=== PATIENT | male | born 1970 | race Caucasian/White ===

== ENCOUNTER 2019-08-11 04:10 | Emergency (ER) | payer MEDICAID ==
[~2019-08-11] VITALS: Ht 177.8 cm; Wt 97.4 kg
[~2019-08-11 04:10] MED LIST: TEST5GEL29 HOMETD
[2019-08-11 04:26] VITALS: BP 150/97
--- NOTE | 2019-08-11 04:38 | NUR ---
THIS IS A 49Y M THAT COMES IN TONIGHT AFTER A GLF ONTO SOME ROCKS. PT STS HE IS NOT FEELING SOB AND HAS BEEN DRINKING ETOH AND MONSTER COFFEE THIS EVENING. PT CONNECTED TO ALL MONITORING VSS, CHIDI
--- NOTE | 2019-08-11 04:49 | NUR ---
PA AT BEDSIDE TO ASSESS PT AT THIS TIME.
--- NOTE | 2019-08-11 06:13 | NUR ---
Patient/Caregiver given discharge instructions and they have confirmed that they understand the instructions. Patient ambulatory with steady gait. pt provided with IS and educated on use prior to departing er.
== END 2019-08-11 06:14 | disposition home or self-care (01) ==
LOC: ED 04:32
DX: S23.3XXA Sprain of ligaments of thoracic spine, initial encounter (principal); S29.012A Strain of muscle and tendon of back wall of thorax, initial encounter; R07.89 Other chest pain; R05 Cough; R94.31 Abnormal electrocardiogram [ECG] [EKG]; M45.9 Ankylosing spondylitis of unspecified sites in spine; X58.XXXA Exposure to other specified factors, initial encounter; Y93.89 Activity, other specified; Y92.89 Other specified places as the place of occurrence of the external cause; Y99.8 Other external cause status
CPT/HCPCS: 71045; 72072; 93005; 99284

== ENCOUNTER 2019-10-11 06:37 | Emergency (ER) | payer MEDICAID ==
[~2019-10-11] VITALS: Ht 177.8 cm; Wt 98.2 kg
[2019-10-11 06:39] VITALS: BP 140/84
--- NOTE | 2019-10-11 06:54 | NUR ---
PT HAS CO OF LOWER BACK PAIN, SPASMS W FLEXION. JOINT TENDERNESS. DENIES N/T IN EXTREMITES. CMS INTACT. MD AT BEDSIDE FOR EXAM. DENIES CP OR SOB.
[2019-10-11] MEDS ORDERED: DIAZEPAM 5 MG TABLET ONE (06:59)
[2019-10-11] MEDS ORDERED: KETOROLAC 30 MG/1 ML ONE (06:59)
[2019-10-11] MEDS ORDERED: HYDROcodone/APAP 5/325 TABLET ONE (06:59)
[2019-10-11] MEDS ORDERED: KETOROLAC 30 MG/1 ML IM ONE (07:00)
[2019-10-11] MEDS ORDERED: DIAZEPAM 5 MG TABLET PO ONE (07:00)
[2019-10-11] MEDS ORDERED: HYDROcodone/APAP 5/325 TABLET PO ONE (07:00)
--- NOTE | 2019-10-11 07:04 | NUR ---
MEDICATED PER ORDERS. PT DENIES INJURY OR TRAUMA
--- NOTE | 2019-10-11 07:56 | NUR ---
Patient/Caregiver given discharge instructions and they have confirmed that they understand the instructions. Patient ambulatory with steady gait.
== END 2019-10-11 07:57 | disposition home or self-care (01) ==
LOC: ED 07:14
DX: S39.012A Strain of muscle, fascia and tendon of lower back, initial encounter (principal); W19.XXXA Unspecified fall, initial encounter; Y93.01 Activity, walking, marching and hiking; Y92.89 Other specified places as the place of occurrence of the external cause; Y99.8 Other external cause status
CPT/HCPCS: 96372; 99283; J1885

== ENCOUNTER 2019-11-08 07:28 | Emergency (ER) | payer MEDICAID ==
[~2019-11-08] VITALS: Ht 177.8 cm; Wt 97.2 kg
[2019-11-08] MEDS ORDERED: FAMOTIDINE 20 MG/2 ML IV ONE (08:00)
[2019-11-08] MEDS ORDERED: THIAMINE 100MG TABLET PO ONE (08:00)
[2019-11-08] MEDS ORDERED: ONDANSETRON 2MG/ML, 2ML IVPush ONE (08:00)
[2019-11-08] MEDS ORDERED: SODIUM CHLORIDE FLUSH 10ML SYR IVF ONE (08:00)
[2019-11-08] MEDS ORDERED: SODIUM CHLORIDE 0.9% 1,000ML IVBOLUS ONE (08:00)
--- NOTE | 2019-11-08 08:17 | NUR ---
PT AMBULATORY TO ROOM 22 W/ C/O SOB, DRY COUGH, CONGESTION, RUNNY NOSE, DIZZINESS. STATES "I'M PRETTY SURE I HAVE COVID. [facility]". PT ALSO HAS C/O BACK PAIN AND NUMBNESS TO BILAT FINGERS AND PENIS. PT PLACED ON MONITORS. EKG COMPLETED IN TRIAGE. 2ND EKG IN ROOM. PIV INITIATED.
[2019-11-08] MEDS ORDERED: FAMOTIDINE 20 MG/2 ML ONE (08:26)
[2019-11-08] MEDS ORDERED: ONDANSETRON 2MG/ML, 2ML ONE (08:26)
[2019-11-08] MEDS ORDERED: THIAMINE 100MG TABLET ONE (08:26)
[2019-11-08 08:39] LABS: BASOPHILS # (AUTO) 0.03 x10^3/uL (0-0.1); BASOPHILS % (AUTO) 0 % (0-1); EOSINOPHILS # (AUTO) 0.14 x10^3/uL (0-0.4); EOSINOPHILS % (AUTO) 2 % (1-7); LYMPHOCYTES # (AUTO) 0.67 x10^3/uL (1-3.4); LYMPHOCYTES % (AUTO) 9 % (22-44); MD NO; MEAN CORPUSCULAR HEMOGLOBIN 32.7 pg (27.5-34.5); MEAN CORPUSCULAR HGB CONC 33.6 g/dL (33.2-36.2); MEAN PLATELET VOLUME 7.1 fL (7.4-10.4); MONOCYTES # (AUTO) 0.43 x10^3/uL (0.2-0.8); MONOCYTES % (AUTO) 6 % (2-9); NEUTROPHILS # (AUTO) 6.07 x10^3/uL (1.8-6.8); NEUTROPHILS % (AUTO) 83 % (42-75); PLATELET COUNT 295 x10^3/uL (130-400); RED BLOOD COUNT 4.96 x10^6/uL (4.38-5.82); RED CELL DISTRIBUTION WIDTH 13.4 % (9.4-14.8)
[2019-11-08 08:41] LABS: INTERNATIONAL NORMALIZED RATIO 0.92 (0.93-1.1); PROTHROMBIN TIME 9.7 Seconds (9.6-11.5)
[2019-11-08 08:44] VITALS: BP 174/94
[2019-11-08 08:44] LABS: ALANINE AMINOTRANSFERASE 26 U/L (12-78); ALBUMIN 4.2 g/dL (3.4-5.0); ANION GAP 6 mmol/L (5-15); CHLORIDE 107 mmol/L (98-107); CREATININE 1.07 mg/dL (0.7-1.3)
[2019-11-08 08:45] LABS: MICROSCOPIC NOT IND
[2019-11-08 08:48] LABS: ALKALINE PHOSPHATASE 66 U/L (45-117); BILIRUBIN,TOTAL 0.8 mg/dL (0.2-1.0); TOTAL PROTEIN 7.7 g/dL (6.4-8.2); TROPONIN I < 0.015 ng/mL (0.000-0.045)
== END 2019-11-08 09:32 | disposition home or self-care (01) ==
LOC: ED 09:08
DX: G62.1 Alcoholic polyneuropathy (principal); F10.188 Alcohol abuse with other alcohol-induced disorder; R11.0 Nausea; R19.7 Diarrhea, unspecified; R20.0 Anesthesia of skin; R05 Cough; R94.31 Abnormal electrocardiogram [ECG] [EKG]; Y90.0 Blood alcohol level of less than 20 mg/100 ml
CPT/HCPCS: 36415; 71045; 80053; 81003; 83690; 83880; 84484; 85025; 85610; 93005; 96365; 96375; 99285; J2405; J3490; J7030; 96361